=== PATIENT | female | born 1985 | race Caucasian/White ===

== ENCOUNTER → 2021-02-17 | Outpatient (CLI) | payer SELFPAY ==
[~2021-02-17] MED LIST: LACT1CAP6 PO; MULT-496 PO
== END ==
LOC: LAB 11:51
PROVIDERS: ATTEND Orthopaedic Surgery Sports Medicine
DX: Z01.812 Encounter for preprocedural laboratory examination (principal); Z20.822 Contact with and (suspected) exposure to COVID-19; S83.206A Unspecified tear of unspecified meniscus, current injury, right knee, initial encounter; X58.XXXA Exposure to other specified factors, initial encounter; Y93.89 Activity, other specified; Y92.89 Other specified places as the place of occurrence of the external cause; Y99.8 Other external cause status
CPT/HCPCS: U0003; U0005

== ENCOUNTER 2021-02-21 09:11 | Day surgery (SDC) | payer SELFPAY ==
[~2021-02-21] VITALS: Ht 172.7 cm; Wt 91.6 kg
[~2021-02-21 09:11] MED LIST changes: +IV RINGERS,LACTATED 1000ML 1,000 ML IV SCH; +PROCHLORPERAZINE 10 MG/2 ML VIAL. IVP PRN; +fentaNYL PF VIAL 100 MCG/2 ML VIAL IVP PRN
[2021-02-21 09:33] VITALS: BP 124/74
[2021-02-21] MEDS ORDERED: PROPOFOL 10 MG/ML (20ML) VIAL. IV ONE ×2 (09:44→09:45)
[2021-02-21] MEDS ORDERED: LIDOCAINE 1% PF 5 ML VIAL. ONE (09:45)
[2021-02-21] MEDS ORDERED: fentaNYL PF VIAL 100 MCG/2 ML VIAL ONE ×3 (09:45→13:04)
[2021-02-21] MEDS ORDERED: DEXAMETHASONE SOD PHOS 4 MG/ML VIAL ONE (09:45)
[2021-02-21] MEDS ORDERED: ONDANSETRON PF 4 MG/2 ML VIAL. ONE ×2 (09:45→14:04)
[2021-02-21] MEDS ORDERED: SCOPOLAMINE 1.5MG PATCH. TD ONE (09:45)
[2021-02-21] MEDS ORDERED: BUPIVACAINE-EPI 0.25%-1:200000 MPF 30 ML VIAL. ONE (11:38)
--- NOTE | 2021-02-21 11:52 | DISCH ---
DISCHARGE INSTRUCTIONS Condition on Discharge Condition on Discharge: Stable Activity After Discharge Activity Instructions for Disc: Other ROM activity Other activity instructions: NWB, remain in brace Bathing Instructions: Shower-keep dressing dry Lifting Instructions after Dis: No heavy lifting, No pulling or pushing Weight Bearing Status after Di: Non weight bearing Diet after Discharge Diet after Discharge: Regular Wound Incision Care Wound/Incision Care: Ice to area for comfort, Keep wound/cast CDI Other wound/incision instructi: change dressing in 2 days Contacting the [facility] after DC Call your doctor for: Concerns you may have Follow-Up Follow up with: Bryan in 2wks MANISHA YUSUF II, MD Feb 21, 2021 11:52
--- NOTE | 2021-02-21 11:54 | PDOC4 ---
Operative Note Operative Note Date of procedure: 02/21/2021 Surgeon: David Yusuf [employer] Intelligence Analyst: Don Rooney Preoperative diagnosis: Displaced bucket-handle tear of lateral meniscus of right knee Postoperative diagnosis: Same Procedure performed: Right knee arthroscopy with lateral meniscus repair Tourniquet time: less than 60 min Complications: none Blood loss: 5 mils Components inserted: [employer] FasT-Fix x4 Anesthesia: General Findings: #1 intact patellofemoral cartilage 2. Intact medial compartment including stable medial meniscus without any pathology 3. Intact ACL graft 4. PCL unremarkable 5. Lateral meniscus bucket-handle tear with intact root, the tear involves the mid and posterior body. 6. Some superficial fraying of lateral compartment cartilage Reason for procedure: Patient is a very pleasant 35-year-old female who suffered a knee injury around [facility]. She was seen and evaluated my outpatient orthopedic surgery clinic last week, MRI and x-rays were reviewed. Her ACL graft from prior was intact and she had a large displaced bucket-handle tear. I discussed the risks, benefits, and alternatives as well as rationale to meniscus repair with possible partial meniscectomy if it is unrepairable and she wished to proceed. Description of procedure: Patient was greeted in the preoperative area by myself or the correct extremity was verified and marked. She was taken back to the operative suite antibiotics were started as she was brought back. Once in the operating room, she was transferred on spine to the operating table and secured to the bed with all pressure points padded. A nonsterile tourniquet was applied to her right upper leg after she underwent successful induction of a general anesthetic. I had a padded bump laterally at her hip and a padded foot rest across foot of the bed to maintain her knee at 90 degrees passively. Next, I conducted an examination under anesthesia, she had a negative pivot shift, negative Lockman. After this, the right lower extremity was prepped and draped in the usual sterile fashion and we conducted our standard preoperative timeout. I began the procedure by palpating and drawing a line for my planned anterolateral arthroscopic incision, incised skin in accordance with this after exsanguinating extremity and insufflated tourniquet to 250 mmHg. I then introduced the blunt arthroscopic trocar into the suprapatellar pouch followed by the camera. I then began conducted my diagnostic arthroscopy with above-noted findings and upon entering the medial compartment used a spinal needle to localize an anteromedial portal and created this with a scalpel. I then introduced the probe and continued on with my diagnostic arthroscopy. Upon entering the lateral compartment, she is placed in a [id number] position and I was able to quite easily reduce the meniscus tear with a probe. I then inspected the tear, it was essentially her entire meniscus but fortunately her posterior root was intact. I then used a arthroscopic rasp to roughen up the tissue posterior to the tear along its entirety. After this I used the [employer] FasT-Fix devices to accomplish my repair in an all inside fashion and was satisfied with the stability. She did have a small oblique flap tear involving the inner third at about the midportion that I took down with a shaver. After this, I placed the shaver and camera into the pouch and perform repeated aspiration maneuvers to ensure that all loose debris was removed. The removed the arthroscopic instrumentation and all the excess fluid. We then closed the portals with simple interrupted nylon. We then placed a sterile bulky dressing on followed by an Flo wrap in a hinged knee brace. Postoperative plan is for her to be nonweightbearing x6 weeks. She will have a hinged knee brace on and limit motion from 0-90. I will see her back in my clinic in 2 weeks, sooner should a problem arise. DAVID YUSUF II, MD Feb 21, 2021 11:54
[2021-02-21] MEDS ORDERED: KETOROLAC 30 MG/ML VIAL. ONE (12:39)
[2021-02-21] MEDS ORDERED: SEVOFLURANE 31 TO 60 MINUTES. IH ONE (12:42)
[2021-02-21] MEDS ORDERED: PROCHLORPERAZINE 10 MG/2 ML VIAL. ONE (12:55)
[2021-02-21] MEDS: fentaNYL PF VIAL 100 MCG/2 ML VIAL IVP PRN ×3 (13:03→13:43)
[2021-02-21] MEDS ORDERED: HYDROmorphone 2 MG/ML VIAL ONE (13:12)
[2021-02-21] MEDS: HYDROmorphone 2 MG/ML VIAL IVP PRN ×2 (13:20→13:37)
[2021-02-21] MEDS ORDERED: oxyCODONE/APAP 5/325 1 TAB TABLET PO ONE (13:30)
[2021-02-21] MEDS ORDERED: oxyCODONE/APAP 5/325 1 TAB TABLET ONE (13:31)
[2021-02-21 14:00] VITALS: BP 135/77
[2021-02-21] MEDS ORDERED: ONDANSETRON PF 4 MG/2 ML VIAL. IVP ONE (14:15)
== END 2021-02-21 14:25 | disposition home or self-care (01) ==
LOC: SURG 09:11 → EDUNIT# 11:00 → SURG 14:25
PROVIDERS: ATTEND Orthopaedic Surgery Sports Medicine
DX: S83.251A Bucket-handle tear of lateral meniscus, current injury, right knee, initial encounter (principal); F41.9 Anxiety disorder, unspecified; Z90.710 Acquired absence of both cervix and uterus; Z98.890 Other specified postprocedural states; Z79.899 Other long term (current) drug therapy; Z88.6 Allergy status to analgesic agent; Z88.2 Allergy status to sulfonamides; X58.XXXA Exposure to other specified factors, initial encounter; Y93.89 Activity, other specified; Y92.89 Other specified places as the place of occurrence of the external cause; Y99.8 Other external cause status
CPT/HCPCS: 29881; A4930; C1713; J0690; J0780; J1100; J1170; J1885; J2405; J2704; J3010; J3490; A4452